=== PATIENT | female | born 1980 | race Two or more races ===

== ENCOUNTER 2018-09-10 11:11 | Emergency (ER) | payer MEDICAID ==
[~2018-09-10] VITALS: Ht 160 cm; Wt 84.8 kg
[2018-09-10 11:46] VITALS: BP 105/60
[2018-09-10] MEDS ORDERED: Meclizine 25mg tab ORAL ONE (12:00)
[2018-09-10 12:16] LABS: APPEARANCE,URINE CLEAR; BILIRUBIN, URINE NEGATIVE (NEGATIVE); COLOR,URINE PALE YELLOW; GLUCOSE, URINE (UA) NEGATIVE (NEGATIVE); KETONES,URINE NEGATIVE (NEGATIVE); LEUKOCYTE ESTERASE ,URINE NEGATIVE (NEGATIVE); NITRITE,URINE NEGATIVE (NEGATIVE); PH,URINE 7 (4.5-8.0); PROTEIN,URINE NEGATIVE (NEGATIVE); UROBILINOGEN,URINE NORMAL MG/DL (0.0-1.0)
--- NOTE | 2018-09-10 12:16 | Diagnostic Imaging Report ---
EXAM: CT Head Without Intravenous Contrast CLINICAL HISTORY: DIZZY TECHNIQUE: Axial computed tomography images of the head/brain without intravenous contrast. CTDI is 70.53 mGy and DLP is 1417 mGy-cm. One or more of the following dose reduction techniques were used: automated exposure control, adjustment of the mA and/or kV according to patient size, use of iterative reconstruction technique. COMPARISON: No relevant prior studies available. FINDINGS: Brain: Unremarkable. No evidence of acute intracranial hemorrhage. No significant white matter disease. No edema. No mass effect or midline shift. Ventricles: Unremarkable. No ventriculomegaly. Bones/joints: Unremarkable. No depressed skull fracture. Soft tissues: Unremarkable. Sinuses: Unremarkable as visualized. No acute sinusitis. Mastoid air cells: Unremarkable as visualized. No mastoid effusion. IMPRESSION: Unremarkable noncontrast CT of the head/brain.
[2018-09-10] MEDS ORDERED: MECLIZINE HCL25 MG ORAL (13:12)
[2018-09-10 13:21] VITALS: BP 105/60
--- NOTE | 2018-09-10 14:59 | Emergency Room Report ---
History of Present Illness General Chief Complaint: Dizziness Source: Patient Present Illness HPI Patient 37-year-old female presented after increased the dizziness. Patient gradual onset of symptoms. She reports having intermittent vertigo-like sensation. She reports having a recent CT imaging of her abdomen after increased abdominal discomfort. Patient had been having increased pain without any vomiting. She denies any fever. Allergies: Coded Allergies: No Known Allergies (Unverified , 09/10/18) Patient History Past Medical History: see triage record Last Menstrual Period: NA Now: No - hysterectomy Reviewed Nursing Documentation: PMH: Agreed; PSxH: Agreed Nursing Documentation-PMH Past Medical History: No History, Except For Review of Systems All Other Systems: negative except mentioned in HPI Physical Exam Vital Signs Date Time Temp Pulse Resp B/P (MAP) Pulse Ox O2 Delivery O2 Flow Rate FiO2 09/10/18 11:19 98.7 63 16 105/60 97 Room Air 98.8 Sp02 EP Interpretation: reviewed, normal General Appearance: normal inspection, well appearing, no apparent distress, alert, GCS 15 Head: atraumatic ENT: normal ENT inspection, hearing grossly normal, normal voice Neck: normal inspection, full range of motion, supple, no bony tend Respiratory: normal inspection, lungs clear, normal breath sounds, no respiratory distress, no retraction, no wheezing Cardiovascular #1: regular rate, rhythm, no edema Gastrointestinal: normal inspection, normal bowel sounds, non tender, soft, no guarding, no hernia Genitourinary: no CVA tenderness Musculoskeletal: normal inspection, back normal, normal range of motion Neurologic: normal inspection, alert, oriented x3, responsive, tube test technician III-XII nml as tested, motor strength/tone normal, speech normal Psychiatric: normal inspection, judgement/insight normal, mood/affect normal Skin: normal inspection, normal color, no rash Medical Decision Making Diagnostic Impression: Primary Impression: Vertigo ER Course Patient presented for dizziness. Differential diagnosis included was not limited to CVA, vertebrobasilar insufficiency, myocardial infarction, benign positional vertigo, labyrinthitis, aspirin overdose among others. The patient has exam consistent with peripheral vertigo likely do to benign positional vertigo. Patient was given oral meclizine. Patient had improvement in symptoms. A CT the head read by radiology showed no acute intracraial hemorrhage or cva. The patient was advised fluid restriction. The patient was advised to discontinue marijuana use. She is advised to recheck if any worsening of condition. Labs Test 09/10/18 11:55 Urine Color Pale yellow Urine Appearance Clear Urine pH 7 (4.5-8.0) Urine Specific [place] 1.005 (1.005-1.035) Urine Protein Negative (NEGATIVE) Urine Glucose (UA) Negative (NEGATIVE) Urine Ketones Negative (NEGATIVE) Urine Blood Negative (NEGATIVE) Urine Nitrite Negative (NEGATIVE) Urine Bilirubin Negative (NEGATIVE) Urine Urobilinogen Normal MG/DL (0.0-1.0) Urine Leukocyte Esterase Negative (NEGATIVE) Urine HCG, Qualitative Negative (NEGATIVE) Last Vital Signs Date Time Temp Pulse Resp B/P (MAP) Pulse Ox O2 Delivery O2 Flow Rate FiO2 09/10/18 13:21 98.8 63 16 105/60 97 Room Air 98.8 Status: improved Disposition: HOME, SELF-CARE Condition: Stable Scripts Meclizine Hcl* (MECLIZINE*) 25 Mg Tablet 25 MG ORAL THREE TIMES A DAY, #14 TAB Prov: William Cano MD 09/10/18 Patient Instructions: Vertigo Additional Instructions: Follow up with your physician if symptoms worsen. Return if any concerns. You may need MRI if symptoms worsen or persist. William Cano MD Sep 10, 2018 14:59
== END 2018-09-10 13:22 | disposition home or self-care (01) ==
LOC: EMR 12:00
DX: R42 Dizziness and giddiness (principal)
CPT/HCPCS: 70450; 81003; 81025; 99284

== ENCOUNTER 2018-10-06 09:22 | Emergency (ER) | payer OTHER ==
[~2018-10-06] VITALS: Ht 160 cm; Wt 83.0 kg
[~2018-10-06 09:22] MED LIST: MECLIZINE HCL25 MG ORAL
[2018-10-06 09:40] VITALS: BP 119/77
--- NOTE | 2018-10-06 09:51 | Emergency Room Report ---
History of Present Illness General Chief Complaint: Wound Recheck/Suture Removal Source: Patient Present Illness HPI this patient is here for suture removal. She had sutures placed September 23 at [facility]. Allergies: Coded Allergies: No Known Allergies (Unverified , 09/10/18) Patient History Now: No Nursing Documentation-[facility] Past Medical History: No History, Except For Review of Systems All Other Systems: limited Physical Exam Vital Signs Date Time Temp Pulse Resp B/P (MAP) Pulse Ox O2 Delivery O2 Flow Rate FiO2 10/06/18 09:26 97.5 56 17 109/63 98 Room Air General Appearance: well appearing, no apparent distress Head: normocephalic, atraumatic ENT: hearing grossly normal, normal voice Neck: full range of motion, supple Respiratory: no respiratory distress, speaking full sentences Musculoskeletal: other - ~15 sutures medial aspect distal right forearm; no cellulitis, well approximated Neurologic: alert, normal gait Psychiatric: mood/affect normal Skin: no rash Medical Decision Making Diagnostic Impression: Primary Impression: Encounter for removal of sutures Last Vital Signs Date Time Temp Pulse Resp B/P (MAP) Pulse Ox O2 Delivery O2 Flow Rate FiO2 10/06/18 09:26 97.5 56 17 109/63 98 Room Air Status: improved Disposition: HOME, SELF-CARE Condition: Stable Referrals: NON PHYSICIAN (PCP) Patient Instructions: Wound Check Garry Pabon M.D. Oct 06, 2018 09:51
[2018-10-06 10:16] VITALS: BP 104/67
== END 2018-10-06 10:16 | disposition home or self-care (01) ==
LOC: EMR 09:40
DX: Z48.02 Encounter for removal of sutures (principal)
CPT/HCPCS: 99282

== ENCOUNTER 2018-11-07 11:04 | Emergency (ER) | payer OTHER ==
[~2018-11-07] VITALS: Ht 160 cm; Wt 81.6 kg
[2018-11-07 11:32] VITALS: BP 93/69
[2018-11-07] MEDS ORDERED: BACITRACIN15 GM TOPIC (11:44)
[2018-11-07] MEDS ORDERED: Bacitracin Oint UD TOPIC ONE (11:45)
[2018-11-07 11:58] VITALS: BP 98/62
--- NOTE | 2018-11-07 14:42 | Emergency Room Report ---
History of Present Illness General Chief Complaint: Skin Rash/Abscess Source: Patient Present Illness HPI 38-year-old female presents here for wound check. Had brachioplasty performed in [place] in September to remove excess skin. To both arms. States that she notices open wounds under both axilla bilaterally. States pain is a 9 out of 10 but appropriate. States she was unable to reach her surgeon. Denies fevers or chills. Denies any discharge. No other aggravating relieving factors. Denies any other associated symptoms Allergies: Coded Allergies: No Known Allergies (Unverified , 09/10/18) Patient History Past Medical History: none Past Surgical History: other - skin removal [place] Pertinent Family History: none Social History: Denies: smoking, alcohol use, drug use Now: No Immunizations: UTD Reviewed Nursing Documentation: PMH: Agreed; PSxH: Agreed Nursing Documentation-PMH Past Medical History: No History, Except For Review of Systems All Other Systems: negative except mentioned in HPI Physical Exam Vital Signs Date Time Temp Pulse Resp B/P (MAP) Pulse Ox O2 Delivery O2 Flow Rate FiO2 11/07/18 11:07 97.9 55 18 98/66 98 Room Air Sp02 EP Interpretation: reviewed, normal General Appearance: no apparent distress, alert, GCS 15, non-toxic Head: normocephalic Eyes: bilateral eye normal inspection, bilateral eye PERRL ENT: normal ENT inspection Neck: normal inspection Respiratory: normal inspection Cardiovascular #1: normal inspection Gastrointestinal: normal inspection Rectal: deferred Genitourinary: no CVA tenderness Musculoskeletal: back normal, gait/station normal, normal range of motion, non- tender Neurologic: alert, oriented x3, responsive, motor strength/tone normal, sensory intact, speech normal Psychiatric: normal inspection Skin: other - surgical site under both axilla C/D/I. small area of dehiscence bilaterally. no discharge. no bleeding. granualtion tissue noted Lymphatic: normal inspection, no adenopathy Medical Decision Making Diagnostic Impression: Primary Impression: Wound dehiscence ER Course Hospital Course 38-year-old F presents to ED for wound check. s/p brachioplasty Clinical course Patient placed on stretcher. On exam the surgical site appears clean/dry/ intact on both arms. There is a small area of dehiscence under both axilla. There is no discharge or bleeding. There is no erythema or induration. There is granulation tissue noted. I discussed findings with Dr. Rosenbaum. He agrees that this is normal and there is likelihood for small areas of dehiscence. He recommends localized wound care and he will see patient as outpatient in his clinic. Discussed findings with patient. Agrees with plan. Safe for discharge Diagnosis - wound dehisence Stable and discharged to home with Rx Bacitracin. Followup with surgery/ plastics. Return to ED if any signs of infection develop Last Vital Signs Date Time Temp Pulse Resp B/P (MAP) Pulse Ox O2 Delivery O2 Flow Rate FiO2 11/07/18 11:58 97.0 54 13 98/62 100 Room Air Status: improved Disposition: HOME, SELF-CARE Condition: Stable Scripts Bacitracin (Bacitracin) 28.4 Gm Oint...g. 1 APPLIC TOPIC THREE TIMES A DAY, #28.4 GM Prov: Stanton Weller MD 11/07/18 Referrals: Juan Rosenbaum MD Patient Instructions: Wound Dehiscence, [id number] Stanton Weller MD Nov 07, 2018 14:42
== END 2018-11-07 11:59 | disposition home or self-care (01) ==
LOC: EMR 11:37
DX: T81.30XA Disruption of wound, unspecified, initial encounter (principal); Y83.9 Surgical procedure, unspecified as the cause of abnormal reaction of the patient, or of later complication, without mention of misadventure at the time of the procedure
CPT/HCPCS: 99282

== ENCOUNTER 2019-07-27 19:36 | Emergency (ER) | payer MEDICAID, OTHER ==
[~2019-07-27] VITALS: Ht 160 cm; Wt 74.8 kg
[~2019-07-27 19:36] MED LIST changes: +BACITRACIN15 GM TOPIC
[2019-07-27 19:54] VITALS: BP 118/80
--- NOTE | 2019-07-27 19:54 | NUR ---
ED Nurse Note: pt walkde in to ED C/O left upper ABD pain 8/10 for the last 2 months. pt also c/o generalized body pain 8/10. VSS. pt is alert x4.
[2019-07-27] MEDS ORDERED: Isovue-300 100ml vial INJ PRN (20:30)
[2019-07-27] MEDS ORDERED: Ketorolac 30mg Inj IV ONE (20:30)
[2019-07-27 20:38] LABS: APPEARANCE,URINE CLEAR; BILIRUBIN, URINE NEGATIVE (NEGATIVE); GLUCOSE, URINE (UA) NEGATIVE (NEGATIVE); KETONES,URINE NEGATIVE (NEGATIVE); LEUKOCYTE ESTERASE ,URINE 1+ (NEGATIVE); NITRITE,URINE NEGATIVE (NEGATIVE); PH,URINE 6 (4.5-8.0); PROTEIN,URINE NEGATIVE (NEGATIVE); UROBILINOGEN,URINE NORMAL MG/DL (0.0-1.0)
[2019-07-27 20:39] LABS: BASOPHILS % (AUTO) 0.8 % (0.0-2.0); EOSINOPHILS % (AUTO) 3.8 % (0.0-3.0); HEMATOCRIT 41.1 % (37.0-47.0); HEMOGLOBIN 13.5 G/DL (12.0-16.0); LYMPHOCYTES % (AUTO) 36.8 % (20.0-45.0); MEAN CORPUSCULAR VOLUME 86 FL (80-99); MONOCYTES % (AUTO) 9.7 % (1.0-10.0); NEUTROPHILS % (AUTO) 48.8 % (45.0-75.0); PLATELET COUNT 324 K/UL (150-450); RED BLOOD COUNT 4.79 M/UL (4.20-5.40); RED CELL DISTRIBUTION WIDTH 11.9 % (11.6-14.8); WHITE BLOOD COUNT 6.3 K/UL (4.8-10.8)
[2019-07-27 20:42] LABS: ANION GAP 6 mmol/L (5-15); BLOOD UREA NITROGEN 12 mg/dL (7-18); CALCIUM 9.8 MG/DL (8.5-10.1); CARBON DIOXIDE 28 MMOL/L (21-32); CHLORIDE 106 MMOL/L (98-107); CREATININE 0.7 MG/DL (0.55-1.30); SODIUM 140 MMOL/L (136-145)
[2019-07-27 20:45] LABS: COLOR,URINE YELLOW
[2019-07-27 20:46] LABS: ALANINE AMINOTRANSFERASE 16 U/L (12-78); ALKALINE PHOSPHATASE 91 U/L (46-116); ASPARTATE AMINO TRANSFERASE 16 U/L (15-37); BILIRUBIN,TOTAL 0.4 MG/DL (0.2-1.0)
--- NOTE | 2019-07-27 21:00 | NUR ---
ED Nurse Note: left to CT
--- NOTE | 2019-07-27 21:03 | Emergency Room Report ---
History of Present Illness General Chief Complaint: Abdominal Pain Source: Patient Present Illness HPI Patient is a 38 yo female with increased generalized body aches and left upper abdominal pain. Prior hysterectomy and bilateral mastectomy due to FH of breast ca. Allergies: Coded Allergies: No Known Allergies (Unverified , 09/10/18) Patient History Past Medical History: see triage record Now: No Reviewed Nursing Documentation: PMH: Agreed; PSxH: Agreed Nursing Documentation-PMH Past Medical History: No Stated History Review of Systems All Other Systems: negative except mentioned in HPI Physical Exam Vital Signs Date Time Temp Pulse Resp B/P (MAP) Pulse Ox O2 Delivery O2 Flow Rate FiO2 07/27/19 19:47 98.1 63 18 134/83 (100) 98 Room Air 07/27/19 19:54 100 Sp02 EP Interpretation: reviewed, normal General Appearance: normal inspection, well appearing, no apparent distress, alert, GCS 15, non-toxic Head: atraumatic ENT: normal ENT inspection, hearing grossly normal, normal voice Neck: normal inspection, full range of motion, supple, no bony tend Respiratory: normal inspection, lungs clear, normal breath sounds, no respiratory distress, no retraction, no wheezing Cardiovascular #1: regular rate, rhythm, no edema Gastrointestinal: normal inspection, normal bowel sounds, non tender, soft, no guarding, no hernia Genitourinary: no CVA tenderness Musculoskeletal: normal inspection, back normal, normal range of motion Neurologic: normal inspection, alert, oriented x3, responsive, superintendent custodian janitor III-XII nml as tested, speech normal Psychiatric: normal inspection, judgement/insight normal, mood/affect normal Medical Decision Making Labs Test 07/27/19 20:15 White Blood Count 6.3 K/UL (4.8-10.8) Red Blood Count 4.79 M/UL (4.20-5.40) Hemoglobin 13.5 G/DL (12.0-16.0) Hematocrit 41.1 % (37.0-47.0) Mean Corpuscular Volume 86 FL (80-99) Mean Corpuscular Hemoglobin 28.1 PG (27.0-31.0) Mean Corpuscular Hemoglobin Concent 32.8 G/DL (32.0-36.0) Red Cell Distribution Width 11.9 % (11.6-14.8) Platelet Count 324 K/UL (150-450) Mean Platelet Volume 5.8 FL (6.5-10.1) Neutrophils (%) (Auto) 48.8 % (45.0-75.0) Lymphocytes (%) (Auto) 36.8 % (20.0-45.0) Monocytes (%) (Auto) 9.7 % (1.0-10.0) Eosinophils (%) (Auto) 3.8 % (0.0-3.0) Basophils (%) (Auto) 0.8 % (0.0-2.0) Prothrombin Time 10.3 SEC (9.30-11.50) Prothromb Time International Ratio 1.0 (0.9-1.1) Activated Partial Thromboplast Time 28 SEC (23-33) Urine Color Yellow Urine Appearance Clear Urine pH 6 (4.5-8.0) Urine Specific [place] 1.020 (1.005-1.035) Urine Protein Negative (NEGATIVE) Urine Glucose (UA) Negative (NEGATIVE) Urine Ketones Negative (NEGATIVE) Urine Blood Negative (NEGATIVE) Urine Nitrite Negative (NEGATIVE) Urine Bilirubin Negative (NEGATIVE) Urine Urobilinogen Normal MG/DL (0.0-1.0) Urine Leukocyte Esterase 1+ (NEGATIVE) Urine RBC 0-2 /HPF (0 - 2) Urine WBC 2-4 /HPF (0 - 2) Urine Squamous Epithelial Cells Few /LPF (NONE/OCC) Urine Bacteria Few /HPF (NONE) Sodium Level 140 MMOL/L (136-145) Potassium Level 4.0 MMOL/L (3.5-5.1) Chloride Level 106 MMOL/L (98-107) Carbon Dioxide Level 28 MMOL/L (21-32) Anion Gap 6 mmol/L (5-15) Blood Urea Nitrogen 12 mg/dL (7-18) Creatinine 0.7 MG/DL (0.55-1.30) Estimat Glomerular Filtration Rate > 60 mL/min (>60) Glucose Level 79 MG/DL (74-106) Calcium Level 9.8 MG/DL (8.5-10.1) Magnesium Level 1.9 MG/DL (1.5-2.4) Total Bilirubin 0.4 MG/DL (0.2-1.0) Aspartate Amino Transf (AST/SGOT) 16 U/L (15-37) Alanine Aminotransferase (ALT/SGPT) 16 U/L (12-78) Alkaline Phosphatase 91 U/L (46-116) Troponin I 0.000 ng/mL (0.000-0.056) C-Reactive Protein, Quantitative 0.3 mg/dL (0.00-0.90) Total Protein 8.0 G/DL (6.4-8.2) Albumin 4.0 G/DL (3.4-5.0) Globulin 4.0 g/dL Albumin/Globulin Ratio 1.0 (1.0-2.7) Lipase 240 U/L (73-393) EKG Diagnostic Results Rate: normal - 58 Rhythm: NSR ST Segments: no acute changes Last Vital Signs Date Time Temp Pulse Resp B/P (MAP) Pulse Ox O2 Delivery O2 Flow Rate FiO2 07/27/19 19:54 61 18 Room Air 100 07/27/19 19:54 98.1 118/80 100 Status: improved Disposition: HOME, SELF-CARE Condition: Stable Scripts Famotidine (PEPCID AC) 20 Mg Tablet 20 MG PO DAILY, #30 TAB Prov: William Cano MD 07/27/19 Amoxicillin* (AMOXIL*) 500 Mg Capsule 500 MG ORAL EVERY 8 HOURS, #30 CAP Prov: William Cano MD 07/27/19 Referrals: [facility],REFERR[facility] (PCP) William Cano MD Jul 27, 2019 21:03
--- NOTE | 2019-07-27 21:14 | NUR ---
ED Nurse Note: returned from CT
--- NOTE | 2019-07-27 21:21 | Diagnostic Imaging Report ---
Indication: Abdominal pain Technique: Continuous helical transaxial imaging of the abdomen and pelvis was obtained from the lung bases to the pubic symphysis during intravenous contrast administration. Coronal 2-D reformats were also obtained. Study obtained in a Siemens sensation [address] Automatic Exposure Control was utilized. Total Dose length Product (DLP): 843.[address] Dose Index Volume (CTDIvol): 15.7 mGy Comparison: None Findings: Lung bases are clear. Bilateral breast implants are noted. The liver and gallbladder, spleen, pancreas appear unremarkable. Accessory spleen noted. Kidneys are unremarkable. There is no hydronephrosis. Appendix is normal. Bowel gas pattern is nonobstructive. Some reticular densities in the subcutaneous fat over the ventral abdominal wall noted below the umbilicus. This could be due to previous surgery. The uterus is absent. The bladder is unremarkable. There is no hydronephrosis free fluid or free air. IMPRESSION: No acute findings. Bilateral breast implants. Apparent hysterectomy [facility] has communicated the preliminary results to the Emergency Department. Their findings are largely concordant with this report. The CT scanner at [facility] is accredited by the [employer] and the scans are performed using dose optimization techniques as appropriate to a performed exam including Automatic Exposure control.
[2019-07-27] MEDS ORDERED: AMOXICILLIN500 MG ORAL (21:30)
[2019-07-27] MEDS ORDERED: PEPCID AC20 M2 PO (21:30)
[2019-07-27 21:45] VITALS: BP 118/80
--- NOTE | 2019-07-27 21:45 | NUR ---
ER DISCHARGE NOTE: Patient is cleared to be discharged per ERMD, pt is aox4, on room air, with stable vital signs. pt was given dc and prescription instructions, pt was able to verbalize understanding, pt id band and iv site removed without complications. pt is able to ambulate with steady gait. pt took all belongings.
--- NOTE | 2019-07-28 16:36 | Cardiology Report ---
APPROVED REPORT EKG Measurement Heart [id number] IN [id number] Sinus bradycardia with sinus arrhythmia Otherwise normal ECG
== END 2019-07-27 21:45 | disposition home or self-care (01) ==
LOC: EMR 20:22
DX: R10.12 Left upper quadrant pain (principal); Z90.710 Acquired absence of both cervix and uterus
CPT/HCPCS: 36415; 74177; 80053; 81003; 83690; 83735; 84484; 85025; 85610; 85651; 85730; 86140; 86710; 93005; 96365; 96375; 99284; J1885; Q9967; S0028

== ENCOUNTER 2019-09-06 12:51 | Emergency (ER) | payer OTHER ==
[~2019-09-06] VITALS: Ht 160 cm; Wt 81.6 kg
[~2019-09-06 12:51] MED LIST changes: +AMOXICILLIN500 MG ORAL; +PEPCID AC20 M2 PO
[2019-09-06] MEDS ORDERED: NKM (12:59)
[2019-09-06 13:23] VITALS: BP 110/70
--- NOTE | 2019-09-06 13:23 | NUR ---
ED Nurse Note: PT AAOX4, VSS WITH NO ACUTE DISTRESS. PT WALKED IN TO ER C/O GENERALIZED BODY ACHES, SORE THROAT AND FEVER X YESTERDAY. FEVER AT HOME THIS AM 102.0F. PT STATES SHE TOOK "TWO ADVILS." TEMP AT TRIAGE: 98.6F. PT DENIES COUGH OR CONGESTION. PT STATES SHE HAS BEEN SICK FOR OVER TWO WEEKS.
--- NOTE | 2019-09-06 13:24 | NUR ---
ED Nurse Note: Received report from Siva CARBAJAL, Pt walked in due to generalized body pain with sore throat and fever since yesterday 102F at home. Pt already took 2 advils. Afebrile upon triage. AAO x4 and ambulates with steady gait. Speaks in full sentences.
--- NOTE | 2019-09-06 13:37 | Emergency Room Report ---
History of Present Illness General Chief Complaint: Flu Like Symptoms Source: Patient Present Illness HPI 38-year-old female presents to the emergency department complaining of 10 out of 10 severity sore throat in addition to fevers x2 days. Patient reports generalized body aches as well. Patient denies cough she denies shortness of breath, neck pain/stiffness or photophobia. Patient does report a headache she states she has been having headaches for over a month intermittently. Patient reports she has been having dizziness intermittently for several months and had full work-up which was unremarkable. Patient denies trauma or fall. She familial history of cancer with at young age. Patient has bilateral mastectomy due to being BRCA positive. Patient denies night sweats she reports multiple episodes daily coming home with painful joints in the hands with tasha of the fingers which occur later in the day/after work. Patient denies history of autoimmune diseases. She reports she took 2 Advil's prior to arrival but states that she had fevers of 102 yesterday. She denies rash, recent travel or ill contacts with similar symptoms. Patient does report history of recent throat infection last month. She is also reporting nasal congestion, rhinorrhea and bilateral ear pain that she describes as pressure sensation. She denies vertigo, paresthesias, sudden onset of her headaches or tinnitus. Allergies: Coded Allergies: No Known Allergies (Unverified , 09/10/18) Patient History Past Medical History: see triage record Past Surgical History: other - mastectomy and hysterectomy Pertinent Family History: other - cancers Last Menstrual Period: 5 YEARS AGO Now: No - hysterectomy Reviewed Nursing Documentation: PMH: Agreed; PSxH: Agreed Nursing Documentation-PMH Past Medical History: No Stated History Review of Systems All Other Systems: negative except mentioned in HPI Physical Exam Vital Signs Date Time Temp Pulse Resp B/P (MAP) Pulse Ox O2 Delivery O2 Flow Rate FiO2 09/06/19 12:56 98.6 76 17 102/62 (75) 98 Room Air Sp02 EP Interpretation: reviewed, normal General Appearance: alert, GCS 15, non-toxic, mild distress Head: normocephalic, atraumatic Eyes: bilateral eye normal inspection, bilateral eye PERRL, bilateral eye other - no photophobia ENT: hearing grossly normal, normal voice, TMs + canals normal, uvula midline, moist mucus membranes, tonsillar swelling, pharyngeal erythema, tonsillar exudate Neck: full range of motion, no meningismus, no bony tend Respiratory: chest non-tender, lungs clear, normal breath sounds, no rhonchi, no respiratory distress, no wheezing, speaking full sentences Cardiovascular #1: regular rate, rhythm, normal capillary refill Gastrointestinal: normal bowel sounds, non tender, soft, non-distended, no guarding Genitourinary: normal inspection, no CVA tenderness Musculoskeletal: back normal, gait/station normal, normal range of motion, non- tender Neurologic: alert, oriented x3, responsive, motor strength/tone normal, sensory intact, normal gait, speech normal, grossly normal Psychiatric: judgement/insight normal Skin: no rash, normal color Lymphatic: no adenopathy Medical Decision Making PA Attestation Dr. Otoole Is my supervising Physician whom patient management has been discussed with. Diagnostic Impression: Primary Impression: Pharyngitis, acute Qualified Codes: J02.0 - Streptococcal pharyngitis Additional Impression: Generalized body aches ER Course 38-year-old female presents to the emergency department complaining of 10 out of 10 severity sore throat in addition to fevers x2 days. Patient reports generalized body aches as well. Patient denies cough she denies shortness of breath, neck pain/stiffness or photophobia. Patient does report a headache she states she has been having headaches for over a month intermittently. Patient reports she has been having dizziness intermittently for several months and had full work-up which was unremarkable. Patient denies trauma or fall. She familial history of cancer with at young age. Patient has bilateral mastectomy due to being BRCA positive. Patient denies night sweats she reports multiple episodes daily coming home with painful joints in the hands with tasha of the fingers which occur later in the day/after work. Patient denies history of autoimmune diseases. She reports she took 2 Advil's prior to arrival but states that she had fevers of 102 yesterday. She denies rash, recent travel or ill contacts with similar symptoms. Patient does report history of recent throat infection last month. She is also reporting nasal congestion, rhinorrhea and bilateral ear pain that she describes as pressure sensation. She denies vertigo, paresthesias, sudden onset of her headaches or tinnitus. Ddx considered but are not limited to: pharyngitis, strep, [employer], ludwigs angina, meningitis, URI, Thyroid etiology, influenza just to name a few Vital signs: are WNL, pt. is afebrile H&PE are most consistent with: pharyngitis presumed strep. ORDERS: -CBC: elevated WBC's consistent with immune response/ infection -CMP: WNL -UA: WNL -hcg: Negative ED INTERVENTIONS: -1 Liter NS Bolus -Zofran 4mg IV -Lidocaine PO - Tylenol PO - Augmentin PO --PT. has improved after interventions and several re-assessments. Pt is non- toxic in appearance and able to tolerate oral intake. DISCHARGE: At this time pt. is stable for d/c to home. Will provide printed patient care instructions, and any necessary prescriptions. Care plan and follow up instructions have been discussed with the patient prior to discharge. Labs Test 09/06/19 13:45 White Blood Count 16.0 K/UL (4.8-10.8) Red Blood Count 4.87 M/UL (4.20-5.40) Hemoglobin 13.9 G/DL (12.0-16.0) Hematocrit 41.6 % (37.0-47.0) Mean Corpuscular Volume 85 FL (80-99) Mean Corpuscular Hemoglobin 28.5 PG (27.0-31.0) Mean Corpuscular Hemoglobin Concent 33.3 G/DL (32.0-36.0) Red Cell Distribution Width 11.8 % (11.6-14.8) Platelet Count 298 K/UL (150-450) Mean Platelet Volume 5.8 FL (6.5-10.1) Neutrophils (%) (Auto) % (45.0-75.0) Lymphocytes (%) (Auto) % (20.0-45.0) Monocytes (%) (Auto) % (1.0-10.0) Eosinophils (%) (Auto) % (0.0-3.0) Basophils (%) (Auto) % (0.0-2.0) Differential Total Cells Counted 100 Neutrophils % (Manual) 86 % (45-75) Lymphocytes % (Manual) 8 % (20-45) Monocytes % (Manual) 6 % (1-10) Eosinophils % (Manual) 0 % (0-3) Basophils % (Manual) 0 % (0-2) Band Neutrophils 0 % (0-8) Platelet Estimate Adequate Platelet Morphology Normal Urine Color Pale yellow Urine Appearance Clear Urine pH 7 (4.5-8.0) Urine Specific [place] 1.000 (1.005-1.035) Urine Protein Negative (NEGATIVE) Urine Glucose (UA) Negative (NEGATIVE) Urine Ketones Negative (NEGATIVE) Urine Blood Negative (NEGATIVE) Urine Nitrite Negative (NEGATIVE) Urine Bilirubin Negative (NEGATIVE) Urine Urobilinogen Normal MG/DL (0.0-1.0) Urine Leukocyte Esterase 1+ (NEGATIVE) Urine RBC 0-2 /HPF (0 - 2) Urine WBC 0-2 /HPF (0 - 2) Urine Squamous Epithelial Cells Occasional /LPF Urine Bacteria Occasional /HPF (NONE) Urine HCG, Qualitative Negative (NEGATIVE) Sodium Level 138 MMOL/L (136-145) Potassium Level 3.6 MMOL/L (3.5-5.1) Chloride Level 102 MMOL/L (98-107) Carbon Dioxide Level 28 MMOL/L (21-32) Anion Gap 8 mmol/L (5-15) Blood Urea Nitrogen 11 mg/dL (7-18) Creatinine 0.7 MG/DL (0.55-1.30) Estimat Glomerular Filtration Rate > 60 mL/min (>60) Glucose Level 87 MG/DL (74-106) Calcium Level 9.5 MG/DL (8.5-10.1) Total Bilirubin 0.6 MG/DL (0.2-1.0) Aspartate Amino Transf (AST/SGOT) 14 U/L (15-37) Alanine Aminotransferase (ALT/SGPT) 22 U/L (12-78) Alkaline Phosphatase 90 U/L (46-116) Total Protein 8.3 G/DL (6.4-8.2) Albumin 3.7 G/DL (3.4-5.0) Globulin 4.6 g/dL Albumin/Globulin Ratio 0.8 (1.0-2.7) Last Vital Signs Date Time Temp Pulse Resp B/P (MAP) Pulse Ox O2 Delivery O2 Flow Rate FiO2 09/06/19 13:23 80 15 Room Air 09/06/19 12:56 98.6 102/62 (75) 98 Status: improved Disposition: HOME, SELF-CARE Condition: Stable Scripts Acetaminophen* (TYLENOL EXTRA STRENGTH*) 500 Mg Tablet 500 MG ORAL Q6H PRN for Mild Pain/Temp > 100.5, #20 TAB 0 Refills Prov: Nilda Wong 09/06/19 Lidocaine HCl 2% Viscous (Lidocaine HCl 2% Viscous) 100 Ml Solution 15 ML ORAL QID, #220 ML Prov: Nilda Wong 09/06/19 Amoxicillin/Potassium Clav 875-125* (AUGMENTIN 875-125 TABLET*) 1 Each Tablet 1 TAB ORAL TWICE A DAY for 10 Days, #20 TAB Prov: Nilda Wong 09/06/19 Departure Forms: Return to Work Return to Work Date: Sep 11, 2019 Work Restrictions: None Other Restrictions: May return Sooner if Symptoms have resolved. Return to Full Activity: Sep 11, 2019 Patient Instructions: Strep Throat, [id number] Additional Instructions: Take medications as directed. Follow up with a Primary Care Provider in 3-5 days, even if your symptoms have resolved. Loadmaster Evaluation is recommended. Return sooner to ED if new symptoms occur, or current symptoms become worse. - Please note that this Emergency Department Report was dictated using [employer] controller technology software, occasionally this can lead to erroneous entry secondary to interpretation by the dictation equipment. Nilda Wong Sep 06, 2019 13:37
--- NOTE | 2019-09-06 13:50 | NUR ---
ED Nurse Note: BLOOD WORK AND URINE SENT TO LAB.
--- NOTE | 2019-09-06 14:02 | NUR ---
ED Nurse Note: PT IS RESTING WITH FAMILY MEMEBER AT BEDSIDE.
[2019-09-06 14:11] LABS: APPEARANCE,URINE CLEAR; BILIRUBIN, URINE NEGATIVE (NEGATIVE); COLOR,URINE PALE YELLOW; GLUCOSE, URINE (UA) NEGATIVE (NEGATIVE); HEMATOCRIT 41.6 % (37.0-47.0); HEMOGLOBIN 13.9 G/DL (12.0-16.0); KETONES,URINE NEGATIVE (NEGATIVE); LEUKOCYTE ESTERASE ,URINE 1+ (NEGATIVE); MEAN CORPUSCULAR VOLUME 85 FL (80-99); NITRITE,URINE NEGATIVE (NEGATIVE); PH,URINE 7 (4.5-8.0); PLATELET COUNT 298 K/UL (150-450); PROTEIN,URINE NEGATIVE (NEGATIVE); RED BLOOD COUNT 4.87 M/UL (4.20-5.40); RED CELL DISTRIBUTION WIDTH 11.8 % (11.6-14.8); UROBILINOGEN,URINE NORMAL MG/DL (0.0-1.0)
[2019-09-06 14:26] LABS: ANION GAP 8 mmol/L (5-15); BLOOD UREA NITROGEN 11 mg/dL (7-18); CALCIUM 9.5 MG/DL (8.5-10.1); CARBON DIOXIDE 28 MMOL/L (21-32); CHLORIDE 102 MMOL/L (98-107); CREATININE 0.7 MG/DL (0.55-1.30); POTASSIUM 3.6 MMOL/L (3.5-5.1); SODIUM 138 MMOL/L (136-145)
[2019-09-06 14:31] LABS: ALANINE AMINOTRANSFERASE 22 U/L (12-78); ALBUMIN 3.7 G/DL (3.4-5.0); ALBUMIN/GLOBULIN RATIO 0.8 (1.0-2.7); ALKALINE PHOSPHATASE 90 U/L (46-116); ASPARTATE AMINO TRANSFERASE 14 U/L (15-37); BILIRUBIN,TOTAL 0.6 MG/DL (0.2-1.0)
[2019-09-06 15:23] VITALS: BP 94/69
[2019-09-06] MEDS ORDERED: Lidocaine 2% Visc 15ml soln ORAL ONE (15:30)
[2019-09-06] MEDS ORDERED: Augmentin 875mg Tab ORAL ONE (15:30)
[2019-09-06] MEDS ORDERED: Ketorolac 30mg Inj IV ONE ×2 (15:30)
[2019-09-06] MEDS ORDERED: TYLENOL EXTRA500 MG ORAL (15:54)
[2019-09-06] MEDS ORDERED: LIDOCAINE VISC100 ML ORAL (15:54)
[2019-09-06] MEDS ORDERED: AUGMENTIN 875-1 EAC1 ORAL (15:54)
[2019-09-06 16:09] VITALS: BP 100/74
== END 2019-09-06 16:09 | disposition home or self-care (01) ==
LOC: EMR 13:40
DX: J02.0 Streptococcal pharyngitis (principal); M79.10 Myalgia, unspecified site; Z90.710 Acquired absence of both cervix and uterus; Z90.10 Acquired absence of unspecified breast and nipple
CPT/HCPCS: 36415; 80053; 81003; 81025; 85007; 85025; 96361; 96374; 99284; J2405

== ENCOUNTER 2019-09-11 13:33 | Emergency (ER) | payer OTHER ==
[~2019-09-11] VITALS: Ht 160 cm; Wt 81.6 kg
[~2019-09-11 13:33] MED LIST changes: +AUGMENTIN 875-1 EAC1 ORAL; +LIDOCAINE VISC100 ML ORAL; +NKM; +TYLENOL EXTRA500 MG ORAL
[2019-09-11 13:48] VITALS: BP 96/60
--- NOTE | 2019-09-11 13:48 | NUR ---
ED Nurse Note:pt. came with c/o loosing balance and ringing in both ears for several days
[2019-09-11] MEDS ORDERED: Meclizine 25mg tab ORAL PRN (14:30)
--- NOTE | 2019-09-11 14:58 | NUR ---
ED Nurse Note:urine and blood sent to labs
[2019-09-11 15:17] LABS: APPEARANCE,URINE CLEAR; BILIRUBIN, URINE NEGATIVE (NEGATIVE); COLOR,URINE PALE YELLOW; GLUCOSE, URINE (UA) NEGATIVE (NEGATIVE); KETONES,URINE NEGATIVE (NEGATIVE); LEUKOCYTE ESTERASE ,URINE NEGATIVE (NEGATIVE); NITRITE,URINE NEGATIVE (NEGATIVE); PH,URINE 7 (4.5-8.0); PROTEIN,URINE NEGATIVE (NEGATIVE); UROBILINOGEN,URINE NORMAL MG/DL (0.0-1.0)
[2019-09-11 15:22] LABS: BASOPHILS % (AUTO) 1.2 % (0.0-2.0); EOSINOPHILS % (AUTO) 2.5 % (0.0-3.0); HEMATOCRIT 42.9 % (37.0-47.0); HEMOGLOBIN 14.5 G/DL (12.0-16.0); LYMPHOCYTES % (AUTO) 35.3 % (20.0-45.0); MEAN CORPUSCULAR VOLUME 84 FL (80-99); MONOCYTES % (AUTO) 6.5 % (1.0-10.0); NEUTROPHILS % (AUTO) 54.5 % (45.0-75.0); PLATELET COUNT 345 K/UL (150-450); RED BLOOD COUNT 5.09 M/UL (4.20-5.40); RED CELL DISTRIBUTION WIDTH 10.4 % (11.6-14.8); WHITE BLOOD COUNT 6.5 K/UL (4.8-10.8)
[2019-09-11 15:31] LABS: ANION GAP 6 mmol/L (5-15); BLOOD UREA NITROGEN 11 mg/dL (7-18); CALCIUM 9.7 MG/DL (8.5-10.1); CARBON DIOXIDE 29 MMOL/L (21-32); CHLORIDE 105 MMOL/L (98-107); CREATININE 0.8 MG/DL (0.55-1.30); POTASSIUM 3.7 MMOL/L (3.5-5.1); SODIUM 140 MMOL/L (136-145)
--- NOTE | 2019-09-11 15:32 | Diagnostic Imaging Report ---
Indications: Loss of balance, tinnitus, vertigo Technique: Spiral acquisitions obtained through the brain. Angled axial and coronal 5 x 5 mm slices were reconstructed. Total dose length product 1332 mGycm. CTDI vol(s) 62 mGy. Dose reduction achieved using automated exposure control Comparison: None. Findings: No acute adrenal hemorrhage or edema. No mass effect or midline shift. Normal ferrell-white differentiation. Normal size ventricles and extra axial CSF spaces. The mastoids are clear. The calvarium is intact. Visualized orbits and sinuses are unremarkable. Impression: Negative The CT scanner at [facility] is accredited by the [employer] and the scans are performed using protocols designed to limit radiation exposure to as low as reasonably achievable to attain images of sufficient resolution adequate for diagnostic evaluation.
[2019-09-11 15:40] LABS: ALANINE AMINOTRANSFERASE 31 U/L (12-78); ALBUMIN 3.6 G/DL (3.4-5.0); ALBUMIN/GLOBULIN RATIO 0.7 (1.0-2.7); ALKALINE PHOSPHATASE 97 U/L (46-116); ASPARTATE AMINO TRANSFERASE 18 U/L (15-37); BILIRUBIN,TOTAL 0.2 MG/DL (0.2-1.0)
[2019-09-11 16:17] VITALS: BP 96/60
--- NOTE | 2019-09-11 16:19 | Emergency Room Report ---
History of Present Illness General Chief Complaint: General Complaint Source: Patient Present Illness HPI 38 yo female presents to the ED C/O 12/08 in severity bilateral ear pain/ fullness with ringing of the ears, feeling "foggy" and having intermittent episodes of imbalance. Pt. denies vertigo and describes feeling wobbly like on a boat. Pt. reports head injury back in may where she had palpable hematoma. pt. denies LOC. pt. reports recent URI with sore throat and is currently finishing abx. pt. reports sporadic use of tylenol as rx'd. Pt. denies photophobia, neck pain or neck stiffness. Pt. denies vomiting and reports intermittent nausea. Pt. reports delay in response time when conversing with . Pt. was unable to follow up with her PCP since last ED visit last week. Pt. denies fevers or chills. Pt. denies . Pt. denies visual changes or changes to smell. No other aggravating or relieving factors at this time. Pt. reports she is afraid to return to work as sometimes she has to climb a ladder and she does not feel balanced enough. Denies CP, Palpitations, Dyspnea or SOB. Denies sudden onset WOLF. She denies night sweats. Allergies: Coded Allergies: No Known Allergies (Unverified , 09/10/18) Patient History Past Medical History: see triage record Past Surgical History: none Pertinent Family History: none Last Menstrual Period: hysterectomy Now: No Reviewed Nursing Documentation: PMH: Agreed; PSxH: Agreed Nursing Documentation-PMH Past Medical History: No History, Except For Review of Systems All Other Systems: negative except mentioned in HPI Physical Exam Vital Signs Date Time Temp Pulse Resp B/P (MAP) Pulse Ox O2 Delivery O2 Flow Rate FiO2 09/11/19 13:38 97.5 61 20 96/60 (72) 98 Room Air Sp02 EP Interpretation: reviewed, normal General Appearance: no apparent distress, alert, GCS 15, non-toxic Head: normocephalic, atraumatic Eyes: bilateral eye normal inspection, bilateral eye PERRL, bilateral eye other - no photophobia, EOMI, ENT: hearing grossly normal, normal voice, TMs + canals normal, uvula midline, moist mucus membranes Neck: full range of motion, no meningismus, no bony tend Respiratory: lungs clear, normal breath sounds, speaking full sentences Cardiovascular #1: regular rate, rhythm Genitourinary: normal inspection, no CVA tenderness Musculoskeletal: back normal, gait/station normal, normal range of motion, non- tender Neurologic: alert, oriented x3, responsive, motor strength/tone normal, sensory intact, normal gait, speech normal, no pronator, other - negative rhomberg, no ataxia. normal speech, no significant delay in response time., grossly normal Psychiatric: judgement/insight normal Skin: no rash Lymphatic: no adenopathy Medical Decision Making PA Attestation Dr. Otoole Is my supervising Physician whom patient management has been discussed with. Diagnostic Impression: Primary Impression: Head ache Qualified Codes: R51 - Headache Additional Impressions: Imbalance Lethargy ER Course 38 yo female presents to the ED C/O 12/08 in severity bilateral ear pain/ fullness with ringing of the ears, feeling "foggy" and having intermittent episodes of imbalance. Pt. denies vertigo and describes feeling wobbly like on a boat. Pt. reports head injury back in may where she had palpable hematoma. pt. denies LOC. pt. reports recent URI with sore throat and is currently finishing abx. pt. reports sporadic use of tylenol as rx'd. Pt. denies photophobia, neck pain or neck stiffness. Pt. denies vomiting and reports intermittent nausea. Pt. reports delay in response time when conversing with . Pt. was unable to follow up with her PCP since last ED visit last week. Pt. denies fevers or chills. Pt. denies . Pt. denies visual changes or changes to smell. No other aggravating or relieving factors at this time. Pt. reports she is afraid to return to work as sometimes she has to climb a ladder and she does not feel balanced enough. Denies CP, Palpitations, Dyspnea or SOB. Denies sudden onset WOLF. She denies night sweats. Ddx considered but are not limited to Mnire's, BPPV, labyrinthitis, cerebellar stroke, hypovolemia, cardiac cause, psychiatric just to name a few. Vital signs: are WNL, pt. is afebrile - bp low, similar to last visit. pt. was given IV fluids with no significant change. H&PE are most consistent with : normal physical exam. No focal deficit to indicate TIA or CVA. No vertical nystagmus. ORDERS: -CT head no contrast- negative for ICH, EDEMA, or mass -CMP: WNL -CBC: WNL -Tylenol level: WNL -ASA level: WNL -UA: WNL -Urine Hcg: Negative - UDS: all negative ED INTERVENTIONS: 25mg Meclizine PO DISCHARGE: At this time pt. is stable for d/c to home. Will provide printed patient care instructions, and any necessary prescriptions. Care plan and follow up instructions have been discussed with the patient prior to discharge. Labs Test 09/11/19 14:30 White Blood Count 6.5 K/UL (4.8-10.8) Red Blood Count 5.09 M/UL (4.20-5.40) Hemoglobin 14.5 G/DL (12.0-16.0) Hematocrit 42.9 % (37.0-47.0) Mean Corpuscular Volume 84 FL (80-99) Mean Corpuscular Hemoglobin 28.6 PG (27.0-31.0) Mean Corpuscular Hemoglobin Concent 33.9 G/DL (32.0-36.0) Red Cell Distribution Width 10.4 % (11.6-14.8) Platelet Count 345 K/UL (150-450) Mean Platelet Volume 5.7 FL (6.5-10.1) Neutrophils (%) (Auto) 54.5 % (45.0-75.0) Lymphocytes (%) (Auto) 35.3 % (20.0-45.0) Monocytes (%) (Auto) 6.5 % (1.0-10.0) Eosinophils (%) (Auto) 2.5 % (0.0-3.0) Basophils (%) (Auto) 1.2 % (0.0-2.0) Urine Color Pale yellow Urine Appearance Clear Urine pH 7 (4.5-8.0) Urine Specific [place] 1.005 (1.005-1.035) Urine Protein Negative (NEGATIVE) Urine Glucose (UA) Negative (NEGATIVE) Urine Ketones Negative (NEGATIVE) Urine Blood Negative (NEGATIVE) Urine Nitrite Negative (NEGATIVE) Urine Bilirubin Negative (NEGATIVE) Urine Urobilinogen Normal MG/DL (0.0-1.0) Urine Leukocyte Esterase Negative (NEGATIVE) Urine HCG, Qualitative Negative (NEGATIVE) Sodium Level 140 MMOL/L (136-145) Potassium Level 3.7 MMOL/L (3.5-5.1) Chloride Level 105 MMOL/L (98-107) Carbon Dioxide Level 29 MMOL/L (21-32) Anion Gap 6 mmol/L (5-15) Blood Urea Nitrogen 11 mg/dL (7-18) Creatinine 0.8 MG/DL (0.55-1.30) Estimat Glomerular Filtration Rate > 60 mL/min (>60) Glucose Level 81 MG/DL (74-106) Calcium Level 9.7 MG/DL (8.5-10.1) Total Bilirubin 0.2 MG/DL (0.2-1.0) Aspartate Amino Transf (AST/SGOT) 18 U/L (15-37) Alanine Aminotransferase (ALT/SGPT) 31 U/L (12-78) Alkaline Phosphatase 97 U/L (46-116) Total Protein 8.5 G/DL (6.4-8.2) Albumin 3.6 G/DL (3.4-5.0) Globulin 4.9 g/dL Albumin/Globulin Ratio 0.7 (1.0-2.7) Salicylates Level 0.8 ug/mL (2.8-20) Urine Opiates Screen Negative (NEGATIVE) Acetaminophen Level < 2 MCG/ML (10-30) Urine Barbiturates Screen Negative (NEGATIVE) Phencyclidine (PCP) Screen Negative (NEGATIVE) Urine Amphetamines Screen Negative (NEGATIVE) Urine Benzodiazepines Screen Negative (NEGATIVE) Urine Cocaine Screen Negative (NEGATIVE) Urine Marijuana (THC) Screen Negative (NEGATIVE) CT/MRI/US Diagnostic Results CT/MRI/US Diagnostic Results : Imaging Test Ordered: CT Head no Contrast Impression " No evidence of acute fracture, hemorrhage, or intracranial process." Per official radiology report- Please see report for specific details. Last Vital Signs Date Time Temp Pulse Resp B/P (MAP) Pulse Ox O2 Delivery O2 Flow Rate FiO2 09/11/19 13:48 97.5 61 20 96/60 98 Room Air Status: improved Disposition: HOME, SELF-CARE Condition: Stable Scripts Ibuprofen* (MOTRIN*) 600 Mg Tablet 600 MG ORAL THREE TIMES A DAY, #30 TAB 0 Refills Prov: Nilda Wong 09/11/19 Referrals: NON PHYSICIAN (PCP) Departure Forms: Return to Work Return to Work Date: Sep 15, 2019 Other Restrictions: May return Sooner if Symptoms have resolved. Return to Full Activity: Sep 15, 2019 Patient Instructions: Dizziness, [id number] Additional Instructions: Take medications as directed. Follow up with a Neurologist within 3 days, even if your symptoms have resolved. Do not drink alcohol, drive, or operate heavy machinery or climb ladders until cleared by neurologist. Return sooner to ED if new symptoms occur, or current symptoms become worse. - Please note that this Emergency Department Report was dictated using [employer] ra[employer] technology software, occasionally this can lead to erroneous entry secondary to interpretation by the dictation equipment. Nilda Wong Sep 11, 2019 16:19
--- NOTE | 2019-09-11 16:19 | NUR ---
ER DISCHARGE NOTE: Patient is cleared to be discharged per ERMD, pt is aox4, on room air, with stable vital signs. pt was given dc and prescription instructions, pt was able to verbalize understanding, pt is able to ambulate with steady gait. pt took all belongings.
[2019-09-11] MEDS ORDERED: IBUPROFEN600 MG ORAL (16:21)
== END 2019-09-11 16:35 | disposition home or self-care (01) ==
LOC: EMR 14:00
DX: R51 Headache (principal); R53.83 Other fatigue; R26.89 Other abnormalities of gait and mobility
CPT/HCPCS: 36415; 70450; 80053; 80307; 81003; 81025; 85025; 99284; G0480

== ENCOUNTER 2020-08-01 15:56 | Emergency (ER) | payer MEDICAID ==
[~2020-08-01 15:56] MED LIST changes: +IBUPROFEN600 MG ORAL
[2020-08-01] MEDS ORDERED: Morphine Sulfate 4mg/ml Inj (IV USE ONLY) ONE (18:18)
[2020-08-01 19:10] VITALS: BP 103/72
--- NOTE | 2020-08-01 19:10 | NUR ---
ED Nurse Note: pt resting in bed, VSS no ss of distress noted. will continue to monitor.
--- NOTE | 2020-08-01 20:25 | NUR ---
ED Nurse Note: all medications administered, pt tolerated well. no ss of distress noted. pt taken to MRI in stable condition. VSS no ss of distress noted. [facility].
--- NOTE | 2020-08-01 20:33 | Emergency Room Report ---
History of Present Illness Present Illness HPI 39 YO female presents to the ED c/o 09/07 in severity LUQ abdominal pain x 3 days. Pt. also reports worsening of her memory impairment, and increased imbalance. Pt. reports hx of Lyme Disease which was dx'd approx 11 months ago. Pt. denies nausea or vomiting. She denies exacerbation of pain with eating. Pt. denies constipation or diarrhea. Pt. reports tenderness to the abdomen. Pt. reports rapid increase of weakness and more frequent episodes of feeling lightheaded. She denies diplopia or vision loss. Pt. reports having intermittent WOLF's of differing locations in the head x 11 months. Pt denies fevers or chills. Denies CP, Palpitations, LOC, Changes in Vision, Sensation, paresthesias, or a sudden severe onset headache. Pt. has been managed by her PCP and pt. is currently awaiting to have brain EEG done. Pt. reports she has also been seen by ENT specialist who recommended throat EGD studies. Pt. reports both have been postponed secondary to current COVID-19 pandemic. Allergies: Coded Allergies: No Known Allergies (Unverified , 09/10/18) Patient History Past Medical History: see triage record, other - lyme disease Past Surgical History: none Reviewed Nursing Documentation: PMH: Agreed; PSxH: Agreed Review of Systems All Other Systems: negative except mentioned in HPI Physical Exam Sp02 EP Interpretation: reviewed, normal General Appearance: no apparent distress, alert, GCS 15, non-toxic Head: normocephalic, atraumatic Eyes: bilateral eye normal inspection, bilateral eye PERRL, bilateral eye EOMI , bilateral eye other - no photophobia ENT: hearing grossly normal, normal voice Neck: full range of motion, no meningismus, no bony tend Respiratory: chest non-tender, lungs clear, normal breath sounds, no respiratory distress, no accessory muscle use, no wheezing, speaking full sentences Cardiovascular #1: regular rate, rhythm, no edema, normal capillary refill Gastrointestinal: normal bowel sounds, soft, non-distended, no guarding, tenderness - LUQ tenderness, no tenderness on the right side. Rectal: deferred Genitourinary: normal inspection, no CVA tenderness Musculoskeletal: normal range of motion, non-tender, other - mildly staggered gait Neurologic: alert, motor strength/tone normal, oriented x3, sensory intact, responsive, speech normal, other - mildly staggered gait. NO facial droop, no pronator. pt. unable to tolerate rhomburg test. Normal finger to nose/ no ataxia. Pt. with some mild delay in response time. Psychiatric: judgement/insight normal Skin: no rash, normal color Medical Decision Making PA Attestation Dr. Otoole Is my supervising Physician whom patient management has been discussed with. Diagnostic Impression: Primary Impression: Pain, abdominal, nonspecific Additional Impressions: Generalized weakness Worsening headaches Hx of dizziness ER Course 39 YO female presents to the ED c/o 09/07 in severity LUQ abdominal pain x 3 days. Pt. also reports worsening of her memory impairment, and increased imbalance. Pt. reports hx of Lyme Disease which was dx'd approx 11 months ago. Pt. denies nausea or vomiting. She denies exacerbation of pain with eating. Pt. denies constipation or diarrhea. Pt. reports tenderness to the abdomen. Pt. reports rapid increase of weakness and more frequent episodes of feeling lightheaded. She denies diplopia or vision loss. Pt. reports having intermittent WOLF's of differing locations in the head x 11 months. Pt denies fevers or chills. Denies CP, Palpitations, LOC, Changes in Vision, Sensation, paresthesias, or a sudden severe onset headache. Pt. has been managed by her PCP and pt. is currently awaiting to have brain EEG done. Pt. reports she has also been seen by ENT specialist who recommended throat EGD studies. Pt. reports both have been postponed secondary to current COVID-19 pandemic. Ddx considered but are not limited to Diverticulitis, acute appendicitis, diarrhea,UC, PUD, GE, pancreatitis, gallstone, ovarian torsion, ectopic , PID tubo-ovarian abscess, CVA, lacunar infarcts, MS, mass lesion, just to name a few. Vital signs: are WNL, pt. is afebrile H&PE are most consistent with PT. w. hx of worsening neurological symptoms x 11 months in addition to acute onset of severe LUQ abdominal pain. NO acute focal neurological deficits. Pt. has moderate LUQ abdominal tenderness. Pt. is Non- toxic in appearance and appears to be in pain secondary to abdominal tenderness. She is alert, tolerates oral meds/fluids. ORDERS: -CBC, CMP, LIPASE: WNL, --- no leukocytosis, normal renal function, normal lipase and normal liver enzymes. -UA: Unremarkable -URINE HCG:Negative -Troponin: 0.00 - CT Head no Contrast: Unremarkable - CT Abdomen and Pelvis w. Contrast: WNL -MRI Brain w. contrast: WNL --Troponin Added on: while awaiting imaging results. Pt. began c/o CP. ED INTERVENTIONS: - 1 Liter NS - Pepcid 20mg IV -4mg Morphine IV -4mg Zofran IV D/w PT. that I do not identify an acute emergent condition at this time especially given the chronicity of this patients weakness, dizziness/imbalance, and memory dysfunction. The more pressing symptom was new onset severe LUQ abdominal pain. NO acute abdominal process found. D/w pt. regarding possible cardiology follow up as well for bradycardia. Pt. does not demonstrate signs of poor tissue perfusion. PT. has her follow up neurology appointment already scheduled. DISCHARGE: At this time pt. is stable for d/c to home. Will provide printed patient care instructions, and any necessary prescriptions. Care plan and follow up instructions have been discussed with the patient prior to discharge. Please note, pt. presented during an unexpected EHR Downtime. initial triage, progress notes, and orders were done on paper. Labs Test 08/01/20 17:25 Sodium Level 142 MMOL/L (136-145) Potassium Level 3.9 MMOL/L (3.5-5.1) Chloride Level 105 MMOL/L (98-107) Carbon Dioxide Level 25 MMOL/L (21-32) Blood Urea Nitrogen 10 mg/dL (7-18) Creatinine 0.7 MG/DL (0.55-1.30) Estimat Glomerular Filtration Rate > 60 mL/min (>60) Glucose Level 83 MG/DL (74-106) Calcium Level 9.6 MG/DL (8.5-10.1) Total Bilirubin 0.2 MG/DL (0.2-1.0) Aspartate Amino Transf (AST/SGOT) 17 U/L (15-37) Alanine Aminotransferase (ALT/SGPT) 16 U/L (12-78) Alkaline Phosphatase 84 U/L (46-116) Troponin I 0.000 ng/mL (0.000-0.056) Total Protein 8.1 G/DL (6.4-8.2) Albumin 4.0 G/DL (3.4-5.0) Globulin 4.1 g/dL Lipase 179 U/L (73-393) EKG Diagnostic Results Rate: bradycardiac - 47 bpm Rhythm: NSR ST Segments: no acute changes ASA given to the pt in ED: No PA Scribe Text This Interpretation was scribed by ANNE Wong. CT/MRI/US Diagnostic Results CT/MRI/US Diagnostic Results #1: Imaging Test Ordered: - CT Head no Contrast: Impression " Impression: Normal head/brain CT".--Per official radiology report- Please see report for specific details. CT/MRI/US Diagnostic Results #2: Imaging Test Ordered: CT Abdomen and PElvis w. Contrast Impression "Impression: No bowel obstruction. No focal inflammatory process from the gastrointestinal tract. Unremarkable abdominal viscera"--Per official radiology report- Please see report for specific details. CT/MRI/US Diagnostic Results #3: Imaging Test Ordered: MRI Brain w. contrast Impression " Within normal limits. No intracranial hemorrhage or acute stroke. No distinct intracranial lesions seen" --Per official radiology report- Please see report for specific details. Disposition: HOME, SELF-CARE Condition: Stable Signed Out To: Dr. Patino Scripts Famotidine* (Pepcid 20mg tablet*) 20 Mg Tablet 20 MG ORAL TWICE A DAY for 7 Days, #14 TAB 0 Refills Prov: Nilda Wong 08/01/20 Acetaminophen With Codeine (T#3) (TYLENOL #3 TAB*) Y Tab 1 TAB ORAL Q6H PRN for For Pain, #12 TAB Prov: Nilda Wong 08/01/20 Referrals: PREFERRED [facility],REFERRING (PCP) Olga Pierce [facility]. [facility] + [facility] Patient Instructions: Abdominal Pain, Adult, [id number], Dizziness, Easy-to- Read, Weakness, [id number] Additional Instructions: Take medications as directed. Follow up with a Primary Care Provider in 3-5 days, even if your symptoms have resolved. NEUROLOGY Follow up recommended. --Please review list of primary care clinics, if you do not already have a primary care provider Return sooner to ED if new symptoms occur, or current symptoms become worse. - Please note that this Emergency Department Report was dictated using Dragon hand chain maker technology software, occasionally this can lead to erroneous entry secondary to interpretation by the dictation equipment. Nilda Wong Aug 01, 2020 20:33
[2020-08-01 21:20] VITALS: BP 104/70
--- NOTE | 2020-08-01 21:50 | NUR ---
ED Nurse Note: pt returned from MRI in stable condition. Pt assisted to bedside commode and then back into bed. Pt resting in bed, no ss of distress noted.
--- NOTE | 2020-08-01 21:58 | NUR ---
ED Nurse Note: cardiopulmonary technologist at bedside for EKG
[2020-08-01] MEDS ORDERED: Lidocaine 2% Visc 15ml soln ORAL ONE (22:30)
[2020-08-01] MEDS ORDERED: Mylanta II UD 30ml ORAL ONE (22:30)
[2020-08-01] MEDS ORDERED: ACETAMINOPHEN-1 EAC1 ORAL (22:32)
[2020-08-01] MEDS ORDERED: FAMOTIDINE20 MG ORAL (22:32)
--- NOTE | 2020-08-01 22:54 | NUR ---
ED Nurse Note: CUSTOM FURRIER at bedside for repeat EKG per ERPA
--- NOTE | 2020-08-01 23:05 | NUR ---
ED Nurse Note: ERPA at bedside
--- NOTE | 2020-08-01 23:12 | NUR ---
ED Nurse Note: all medications administered, pt tolerated well no ss of distress noted. will continue to monitor.
[2020-08-01 23:20] VITALS: BP 105/73
--- NOTE | 2020-08-01 23:26 | NUR ---
ER DISCHARGE NOTE: Patient is cleared to be discharged home per ERMD, pt is aox4, on room air, with stable vital signs. pt was given dc and prescription instructions, pt was able to verbalize understanding, pt id band and iv site removed without complications. pt is able to ambulate with steady gait. pt took all belongings.
[2020-08-02 08:20] LABS: BLOOD UREA NITROGEN 10 mg/dL (7-18); CARBON DIOXIDE 25 MMOL/L (21-32); CHLORIDE 105 MMOL/L (98-107); CREATININE 0.7 MG/DL (0.55-1.30); POTASSIUM 3.9 MMOL/L (3.5-5.1); SODIUM 142 MMOL/L (136-145)
[2020-08-02 08:21] LABS: ALANINE AMINOTRANSFERASE 16 U/L (12-78); ALKALINE PHOSPHATASE 84 U/L (46-116); ASPARTATE AMINO TRANSFERASE 17 U/L (15-37); BILIRUBIN,TOTAL 0.2 MG/DL (0.2-1.0); CALCIUM 9.6 MG/DL (8.5-10.1)
--- NOTE | 2020-08-02 16:45 | Diagnostic Imaging Report ---
EXAM: MR Head Without and With Intravenous Contrast CLINICAL HISTORY: PAIN TECHNIQUE: Magnetic resonance images of the head/brain without and with intravenous contrast in multiple planes. COMPARISON: CT brain dated 08/01/2020. FINDINGS: Artifacts: No susceptibility artifact to suggest abnormal calcification or intracranial hemorrhage. Brain: No evidence of restricted diffusion abnormality. No hemorrhage. Ventricles: Unremarkable. No ventriculomegaly. Bones/joints: Unremarkable. Sinuses: Unremarkable as visualized. No acute sinusitis. Mastoid air cells: Unremarkable as visualized. No mastoid effusion. Orbits: Unremarkable as visualized. IMPRESSION: 1. MRI of the brain within normal limits. No intracranial hemorrhage or acute stroke. 2. No distinct intracranial lesions seen.
--- NOTE | 2020-08-02 16:45 | Diagnostic Imaging Report ---
EXAM: CT Head Without Intravenous Contrast CLINICAL HISTORY: PAIN TECHNIQUE: Axial computed tomography images of the head/brain without intravenous contrast. CTDI is 53.4 mGy and DLP is 958.2 mGy-cm. One or more of the following dose reduction techniques were used: automated exposure control, adjustment of the mA and/or kV according to patient size, use of iterative reconstruction technique. COMPARISON: Head CT 09/11/2019. FINDINGS: Brain: Unremarkable. No hemorrhage. No significant white matter disease. No edema. Ventricles: Unremarkable. No ventriculomegaly. Bones/joints: Unremarkable. No acute fracture. Soft tissues: Unremarkable. Sinuses: Unremarkable as visualized. No acute sinusitis. Mastoid air cells: Unremarkable as visualized. No mastoid effusion. No significant interval change when compared to the prior head CT. IMPRESSION: Normal head/brain CT.
--- NOTE | 2020-08-02 16:45 | Diagnostic Imaging Report ---
EXAM: CT Abdomen and Pelvis With Intravenous Contrast CLINICAL HISTORY: PAIN TECHNIQUE: Axial computed tomography images of the abdomen and pelvis with intravenous contrast. CTDI is 11.4 mGy and DLP is 576.3 mGy-cm. One or more of the following dose reduction techniques were used: automated exposure control, adjustment of the mA and/or kV according to patient size, use of iterative reconstruction technique. COMPARISON: 07/27/19. FINDINGS: Lung bases: Unremarkable. No mass. No consolidation. ABDOMEN: Liver: Unremarkable. No mass. Gallbladder and bile ducts: Unremarkable. No calcified stones. No ductal dilation. Pancreas: Unremarkable. No mass. No ductal dilation. Spleen: Unremarkable. No splenomegaly. Adrenals: Unremarkable. No mass. Kidneys and ureters: Unremarkable. No solid mass. No hydronephrosis. Stomach and bowel: The small bowel is diffusely decompressed within the distal aspect. Moderate fecal debris within the colon. No obstruction. No mucosal thickening. PELVIS: Appendix: No findings to suggest acute appendicitis. Bladder: Unremarkable. No mass. Reproductive: Nonvisualized uterus suggestive with prior hysterectomy. ABDOMEN and PELVIS: Intraperitoneal space: Unremarkable. No free air. No significant fluid collection. Bones/joints: No acute fracture. No dislocation. Soft tissues: Bilateral breast implants visualized. Stranding along the anterior abdominal wall of the lower pelvis suggestive of sequela of previous surgery. Vasculature: Unremarkable. No abdominal aortic aneurysm. Lymph nodes: Unremarkable. No enlarged lymph nodes. IMPRESSION: 1. No bowel obstruction. No focal inflammatory process from the gastrointestinal tract. 2. Unremarkable abdominal viscera.
== END 2020-08-01 23:20 | disposition home or self-care (01) ==
LOC: EMR 20:14
DX: R10.12 Left upper quadrant pain (principal); R53.1 Weakness; R51 Headache; R42 Dizziness and giddiness; Z86.19 Personal history of other infectious and parasitic diseases
CPT/HCPCS: 36415; 70450; 70553; 74177; 80053; 83690; 84484; 93005; 96374; 96375; A9585; J2270; Q9965; S0028; Z7502; 99284; J2405